=== PATIENT | male | born 1985 | race Caucasian/White ===

== ENCOUNTER → 2017-11-05 | Outpatient (CLI) | payer MEDICAID ==
--- NOTE | 2017-11-05 14:24 | RADIOLOGY IMAGING REPORT ---
FACILITY: [facility] - [place] PATIENT NAME: Cb Oneal : 1985 MR: [id number] V: [id number] EXAM DATE: [id number] ORDERING PHYSICIAN: SOTERO REYNA TECHNOLOGIST: [place] [facility] [place]: Cb Oneal : 1985 Visit/Account:[id number] Date of Sevice: 11/05/2017 LUMBAR SPINE 2 OR 3 VIEW INDICATION: Low back pain after fall from horse. COMPARISON: None available FINDINGS: 3 views lumbar spine. There are 5 nonrib-bearing lumbar vertebral bodies. The vertebral b odies are aligned. No compression fractures, bony lesions or spondylolysis. No appreciable degenerati ve changes. Endplates are maintained. Pedicles are well seen. Soft tissues are unremarkable. IMPRESSION: Normal exam. Report Dictated By: Hernan Akhtar at 11/05/2017 2:19 PM Report E-Signed By: Hernan Akhtar at 11/05/2017 2:20 PM WSN:[id number]
== END ==
LOC: RAD 13:40
PROVIDERS: ATTEND Chiropractor
DX: M54.5 Low back pain (principal)
CPT/HCPCS: 72100